=== PATIENT | male | born 1945 | race Caucasian/White ===

== ENCOUNTER 2017-11-18 10:48 | Emergency (ER) | payer OTHER ==
[2017-11-18 11:56] VITALS: BP 131/73
--- NOTE | 2017-11-18 12:47 | UC ---
FLU HPI - HPI Summary HPI Summary: Pt presents with sinus pain/pressure/congestion and fatigue that began 2 days ago. He reports having a low grade fever, but has not taken his temperature. He would like to be tested for the flu. Denies chills, cough, SOB, chest pain, abdominal pain, n/v/d/c. - History of Current Complaint Chief Complaint: UCGeneralIllness Stated Complaint: SINUS CONGESTION Time Seen by Provider: 11/18/17 12:01 Hx Obtained From: Patient Onset/Duration: Gradual Onset Pain Intensity: 0 - Allergy/Home Medications Allergies/Adverse Reactions: Allergies Allergy/AdvReac Type Severity Reaction Status Date / Time No Known Allergies Allergy Verified 11/18/17 11:45 Home Medications: Home Medications Dapsone TAB* 100 mg PO DAILY 11/18/17 [History Confirmed 11/18/17] Pravastatin Sodium 40 mg PO DAILY 11/18/17 [History Confirmed 11/18/17] Sertraline* [Zoloft*] 50 mg PO BEDTIME 11/18/17 [History Confirmed 11/18/17] Valsartan TAB* [Diovan TAB*] 160 mg PO DAILY 11/18/17 [History Confirmed ] PMH/Surg Hx/FS Hx/Imm Hx Endocrine History: Dyslipidemia Cardiovascular History: Hypertension Psychological History: Anxiety, Depression - Surgical History Surgical History: None - Family History Known Family History: Positive: Cardiac Disease, Hypertension - Social History Occupation: Retired Lives: With Family Alcohol Use: Daily Alcohol Amount: 2 glasses WINE/ day Substance Use Type: None Smoking Status (MU): Never Smoked Tobacco Review of Systems Constitutional: Fever, Fatigue Skin: Negative Eyes: Negative ENT: Sinus Congestion Respiratory: Negative Cardiovascular: Negative Gastrointestinal: Negative Neurological: Negative Psychological: Negative All Other Systems Reviewed And Are Negative: Yes Physical Exam Triage Information Reviewed: Yes Appearance: Well-Appearing, No Pain Distress, Well-Nourished Vital Signs: Initial Vital Signs Temp 99.3 F 11/18/17 11:47 Pulse 72 11/18/17 11:47 Resp 18 11/18/17 11:47 BP 131/73 11/18/17 11:47 Pulse Ox 91 11/18/17 11:47 Vital Signs Reviewed: Yes Eyes: Positive: Conjunctiva Clear. Negative: Conjunctiva Inflamed, Discharge ENT: Positive: Hearing grossly normal, Pharynx normal, Nasal congestion, TMs normal, Uvula midline. Negative: Pharyngeal erythema, Nasal drainage, TM bulging, TM dull, TM red, Tonsillar swelling, Tonsillar exudate, Hoarse voice, Sinus tenderness Neck: Positive: Supple, Nontender, Other: - Anterior lymphadenopathy Respiratory: Positive: Chest non-tender, Lungs clear, Normal breath sounds, No respiratory distress, No accessory muscle use Cardiovascular: Positive: RRR, No Murmur, Pulses Normal Neurological: Positive: Alert Psychological: Positive: Age Appropriate Behavior Skin: Negative: rashes Flu Course/Dx - Course Course Of Treatment: Recheck pulse ox was 96% with deep breaths. POC flu A positive. Tamiflu - Differential Dx/Diagnosis Provider Diagnoses: Influenza A Discharge - Discharge Plan Condition: Stable Disposition: HOME Prescriptions: Oseltamivir CAP* [Tamiflu CAP*] 75 mg PO BID #20 cap Patient Education Materials: Influenza (ED) Referrals: Juanito Funes MD [Primary Care Provider] - Additional Instructions: If you develop a fever, shortness of breath, chest pain, new or worsening symptoms - please call your PCP or go to the ED.
== END 2017-11-18 13:00 | disposition home or self-care (01) ==
LOC: UCEAST 10:48
DX: J10.1 Influenza due to other identified influenza virus with other respiratory manifestations (principal); E78.5 Hyperlipidemia, unspecified; I10 Essential (primary) hypertension; F41.9 Anxiety disorder, unspecified; F32.9 Major depressive disorder, single episode, unspecified
CPT/HCPCS: 87502; 96365; 99212; G0463

== ENCOUNTER 2019-01-18 12:28 | Emergency (ER) | payer OTHER ==
--- NOTE | 2019-01-18 13:03 | UC ---
General HPI - HPI Summary HPI Summary: Pt went to pet neighbor's dog and dog snapped at pt. This happened at approx noon today. Pt here with numerous bites on L forearm and wrist. Pt here with wound on L knee. Today approx noon, pt reached down to pet his neighbor's dog, and dog bite him several times forearm and knee, left side. No p/d/w. Came in to [facility] right away , reports that dog's rabies immun utd. Recently had physical examination 3 days ago, reports no issues. However, tet immun unsure if < 5 yrs (but has been > 2 yrs). - History of Current Complaint Chief Complaint: UCBiteInjury Stated Complaint: DOG BITE Time Seen by Provider: 01/18/19 13:02 Hx Obtained From: Patient Pain Intensity: 3 - Allergy/Home Medications Allergies/Adverse Reactions: Allergies Allergy/AdvReac Type Severity Reaction Status Date / Time No Known Allergies Allergy Verified 01/18/19 12:55 PMH/Surg Hx/FS Hx/Imm Hx Previously Healthy: Yes - possible GI issue, treated in [facility] - Surgical History Surgical History: None - Family History Known Family History: Positive: Cardiac Disease, Hypertension - Social History Alcohol Use: Daily Alcohol Amount: 2 glasses WINE/ day Substance Use Type: None Smoking Status (MU): Never Smoked Tobacco Review of Systems All Other Systems Reviewed And Are Negative: Yes Constitutional: Positive: Negative Skin: Positive: Other - see hpi Eyes: Positive: Negative ENT: Positive: Negative Respiratory: Positive: Negative Cardiovascular: Positive: Negative Gastrointestinal: Positive: Negative Genitourinary: Positive: Negative Motor: Positive: Other - see hpi Neurovascular: Positive: Negative, Other - see hpi Musculoskeletal: Positive: Other: - see hpi Neurological: Positive: Negative - see hpi Psychological: Positive: Negative Is Patient Immunocompromised?: No Physical Exam Triage Information Reviewed: Yes Appearance: Well-Appearing, Well-Nourished Vital Signs: Initial Vital Signs Temp 96.9 F 01/18/19 12:56 Pulse 52 01/18/19 12:56 Resp 16 01/18/19 12:56 BP 154/94 01/18/19 12:56 Pulse Ox 93 01/18/19 12:56 Eye Exam: Normal ENT Exam: Normal Neck exam: Normal Respiratory Exam: Normal - RR normal, no tachypnea, no dyspnea Cardiovascular Exam: Normal - HR normal, nondiaphoretic Abdominal Exam: Normal Abdomen Description: Positive: Nontender Musculoskeletal Exam: Normal - nad, except bites as noted below in "skin" Neurological Exam: Normal - see "skin" - distal nvi. General neurologic grossly nonfocal Psychological Exam: Normal - conversing easily and appropriately. Skin Exam: Other - several epidermal and dermal lacs over wrist and forearm. There is a particularly deep - involving muscle - L ant forearm, approx 3.5cm x 0.3cm x 0.8cm (approximations). Bleeding controlled with pressure. r/u palbable. Distal hand x 5 digit sens LT. From elbow, hand, wrist, fingers includine distal fingers. CR good x 5 fingers. No purulence, tracking redness. L lat knee with superficial abrasion extending to not through dermis approx 1cm diam. Gait steady. Course/Dx - Course Course Of Treatment: 154/94 bp Pt tried calling pcp to check on tet immun status, but did not get through. He would like boostrix today, to make sure utd. Will start augmentin today, aware of the need to go to the Emergency Departement for any worse or new problems. Xray Forearm, obtained, see report in [employer]. No FB. Suture repair performed. Reviewed WC instructions, need for close f/u. Reviewed coa / tx plan. Mr. Carbajal was given the opportunity to ask several insightful questions, to which I answered to the best of my ability. LAc repair. Timeout performed. Usual sterile technique. Irrigated by RN. Local anesthesia via 10cc 2% lidocaine no epi. Wound gently explored - fb noted. Wound margins approximated. Repaired with five loose sutures, SIint 4.0 prolene. Dressing by RN. Tolerated well. Reviewed wound care with pt. - Diagnoses Provider Diagnosis: Dog bite Discharge - Sign-Out/Discharge Documenting (check all that apply): Patient Departure All imaging exams completed and their final reports reviewed: Yes - Discharge Plan Condition: Good Disposition: HOME Prescriptions: Amoxicillin/Clavulanate TAB* [Augmentin TAB 875*] 875 mg PO BID #19 tab Patient Education Materials: Diphtheria/Acellular Pertussis/Tetanus Booster Vaccine (By injection), Animal Bite (ED), Care For Your Stitches (ED), Laceration (ED) Referrals: Juanito Funes MD [Primary Care Provider] - Additional Instructions: Ok to shower, pat dry. Avoid astringents (no hydrogen peroxide, rubbing alcohol, antibacterial soaps, etc). Elevate affected arm as much as possible. Dressing change tomorrow here (or at primary care physician's office), then once daily for 10 days. Please follow up convenient care or with your primary care physician for wound check and dressing change tomorrow. Avoid "Telfa." Do not allow dressings to be airtight. Regardless, please schedule a follow up appointment with your primary care physician THIS week. Seek medical attention for worse or new problems in the meantime. Once sutures removed, please avoid prolonged direct sun exposure. - Billing Disposition and Condition Condition: GOOD Disposition: Home
[2019-01-18] MEDS ORDERED: Tetan/Diph/Pertus SYR(Tdap)* 0.5 ML SYR(BOOSTRIX) use SYR IM ONE (13:20)
[2019-01-18] MEDS ORDERED: Lidocaine 2% 10 ML* VIAL INJ ONE (13:20)
[2019-01-18] MEDS ORDERED: Amoxicillin/Clavulanate TAB* 875 MG PO ONE (13:20)
[2019-01-18] MEDS ORDERED: Mupirocin 2% OINT* TUBE TOPICAL ONE (13:22)
[2019-01-18] MEDS ORDERED: Lidocaine 2% PF * 5 ML VIAL ONE ×2 (13:47→13:49)
[2019-01-18] MEDS ORDERED: Lidocaine 2% PF * 5 ML VIAL IV ONE (13:49)
[2019-01-18 14:52] VITALS: BP 148/86
== END 2019-01-18 14:50 | disposition home or self-care (01) ==
LOC: UCEAST 12:28
DX: S51.812A Laceration without foreign body of left forearm, initial encounter (principal); S61.512A Laceration without foreign body of left wrist, initial encounter; S80.212A Abrasion, left knee, initial encounter; W54.0XXA Bitten by dog, initial encounter; Y92.9 Unspecified place or not applicable; Z23 Encounter for immunization
CPT/HCPCS: 12002; 90471; 90715; 99212; A9270-GY; G0463